=== PATIENT | female | born 1990 | race Caucasian/White ===

== ENCOUNTER 2016-07-16 13:52 | Emergency (ER) | payer MEDICAID ==
[2016-07-16] MEDS ORDERED: OPTIRAY 350 100 ML VIAL HMH IV ONE (13:53)
== END 2016-07-16 20:07 | disposition home or self-care (01) ==
LOC: ER 13:52
DX: R10.31 Right lower quadrant pain (principal)
CPT/HCPCS: 36415; 74177; 80053; 81003; 83690; 84703; 85025